=== PATIENT | female | born 1985 | race African-American/Black ===

== ENCOUNTER 2017-03-20 08:11 | Emergency (ER) | payer MEDICAID ==
[2017-03-20 08:45] LABS: BASOPHILS 0.2 % (0-2); EOSINOPHILS 2.3 % (0-7); HEMATOCRIT 39.2 % (36.0-48.0); IMMATURE GRANULOCYTES 0.4 % (0-5); LYMPHOCYTES 32.1 % (15-50); MCH 28.9 pg (26.0-34.0); MCHC 33.2 g/dL (31.0-37.0); MCV 87.1 fL (80.0-100.0); MEAN PLATELET VOLUME 11.8 fL (7.4-10.4); MONOCYTES 8.3 % (2-11); NEUTROPHILS 56.7 % (40-80); PLATELET COUNT 165 10x3/uL (130-400); RDW 13.1 % (11.5-14.5); WBC 4.7 10x3/uL (4.8-10.8)
[2017-03-20 08:54] LABS: APPEARANCE HAZY (CLEAR); BILIRUBIN NEGATIVE (NEGATIVE); COLOR YELLOW (YELLOW); GLUCOSE NEGATIVE (NEGATIVE); KETONE NEGATIVE (NEGATIVE); LEUKOCYTE ESTERASE NEGATIVE (NEGATIVE); NITRITE NEGATIVE (NEGATIVE); PROTEIN NEGATIVE (NEGATIVE); SPECIFIC GRAVITY 1.015 (1.005-1.020); UROBILINOGEN NORMAL (NORMAL)
[2017-03-20 09:00] LABS: ALBUMIN 3.6 g/dL (3.4-5.0); ALKALINE PHOSPHATASE 41 U/L (46-116); ALT (SGPT) 23 U/L (10-68); CALC OSMOLALITY 269 mosm/kg (275-300); CARBON DIOXIDE 24.6 mmol/L (21.0-32.0); CHLORIDE - SERUM 103 mmol/L (98-107); CREATININE - SERUM 0.7 mg/dL (0.6-1.3); GLUCOSE 83 mg/dL (74-106); POTASSIUM - SERUM 3.6 mmol/L (3.5-5.1); PROTEIN - SERUM 7.4 g/dL (6.4-8.2); SODIUM 136 mmol/L (136-145); UREA NITROGEN 9 mg/dL (7-18); eGFR NON AFRICAN AMERICAN > 90 mL/min (90-120)
[2017-03-20 09:22] LABS: HCG - QUANTITATIVE (MATERNAL) 98789 mIU/mL; LIPASE 92 U/L (73-393)
[2017-03-20 09:53] LABS: HELICOBACTER PYLORI IGG NEGATIVE (NEGATIVE)
== END 2017-03-20 09:41 | disposition home or self-care (01) ==
LOC: D.ER 08:11
PROVIDERS: Emergency Medicine
DX: O26.899 Other specified pregnancy related conditions, unspecified trimester (principal); K27.3 Acute peptic ulcer, site unspecified, without hemorrhage or perforation

== ENCOUNTER 2017-06-12 19:50 | Outpatient (CLI) | payer SELFPAY ==
[2017-06-12 20:34] LABS: BASOPHILS 0.1 % (0-2); EOSINOPHILS 2.2 % (0-7); HEMATOCRIT 32.7 % (36.0-48.0); HEMOGLOBIN 11.1 g/dL (12-16); IMMATURE GRANULOCYTES 0.6 % (0-5); LYMPHOCYTES 28.3 % (15-50); MCH 29.8 pg (26.0-34.0); MCHC 33.9 g/dL (31.0-37.0); MCV 87.7 fL (80.0-100.0); MEAN PLATELET VOLUME 11.7 fL (7.4-10.4); MONOCYTES 9.7 % (2-11); NEUTROPHILS 59.1 % (40-80); PLATELET COUNT 145 10x3/uL (130-400); RBC 3.73 10x6/uL (4.00-5.40); RDW 13.5 % (11.5-14.5); WBC 7.8 10x3/uL (4.8-10.8)
[2017-06-12 20:38] LABS: APPEARANCE HAZY (CLEAR); BILIRUBIN NEGATIVE (NEGATIVE); COLOR YELLOW (YELLOW); GLUCOSE NEGATIVE (NEGATIVE); KETONE NEGATIVE (NEGATIVE); LEUKOCYTE ESTERASE NEGATIVE (NEGATIVE); NITRITE NEGATIVE (NEGATIVE); PROTEIN NEGATIVE (NEGATIVE); UROBILINOGEN NORMAL (NORMAL)
[2017-06-12 21:05] LABS: ALBUMIN 3.1 g/dL (3.4-5.0); ALKALINE PHOSPHATASE 37 U/L (46-116); ALT (SGPT) 19 U/L (10-68); CALC OSMOLALITY 279 mosm/kg (275-300); CALCIUM 9.3 mg/dL (8.5-10.1); CARBON DIOXIDE 23.3 mmol/L (21.0-32.0); CHLORIDE - SERUM 106 mmol/L (98-107); CREATININE - SERUM 0.5 mg/dL (0.6-1.3); GLUCOSE 83 mg/dL (74-106); POTASSIUM - SERUM 3.9 mmol/L (3.5-5.1); PROTEIN - SERUM 6.3 g/dL (6.4-8.2); SODIUM 141 mmol/L (136-145); UREA NITROGEN 12 mg/dL (7-18); eGFR NON AFRICAN AMERICAN > 90 mL/min (90-120)
[2017-06-12 21:29] LABS: HCG - QUANTITATIVE (MATERNAL) 11495 mIU/mL; LIPASE 125 U/L (73-393)
== END 2017-06-13 01:34 | disposition home or self-care (01) ==
LOC: D.ER 19:50 → D.LDO 19:50 → EDSTATUS 20:04 → D.LD 23:51 → D.LDO 06-13 01:34
PROVIDERS: Emergency Medicine
DX: O26.892 Other specified pregnancy related conditions, second trimester (principal); Z3A.20 20 weeks gestation of pregnancy

== ENCOUNTER → 2017-06-20 18:45 | Outpatient (CLI) | payer SELFPAY | END | disposition home or self-care (01) | LOC: D.LDO 18:45 | DX: O36.8190 Decreased fetal movements, unspecified trimester, not applicable or unspecified (principal); Z3A.00 Weeks of gestation of pregnancy not specified ==

== ENCOUNTER 2017-08-03 17:11 | Emergency (ER) | payer MEDICAID ==
[2017-10-20 13:06] VITALS: BMI 28.4
== END 2017-08-03 19:50 | disposition home or self-care (01) ==
LOC: D.ER 17:11
DX: J01.90 Acute sinusitis, unspecified (principal)

== ENCOUNTER 2017-08-28 23:33 | Outpatient (CLI) | payer MEDICAID ==
[2017-08-28 23:55] LABS: APPEARANCE CLEAR (CLEAR); BILIRUBIN NEGATIVE (NEGATIVE); COLOR YELLOW (YELLOW); GLUCOSE NEGATIVE (NEGATIVE); KETONE NEGATIVE (NEGATIVE); NITRITE NEGATIVE (NEGATIVE); PROTEIN NEGATIVE (NEGATIVE); UROBILINOGEN NORMAL (NORMAL)
[2017-10-20 13:06] VITALS: BMI 28.4
== END 2017-08-29 00:26 | disposition home or self-care (01) ==
LOC: D.LD 23:33 → D.LDO 23:33
PROVIDERS: Obstetrics & Gynecology
DX: O26.893 Other specified pregnancy related conditions, third trimester (principal); Z3A.31 31 weeks gestation of pregnancy

== ENCOUNTER → 2017-09-19 15:05 | Outpatient (CLI) | payer MEDICAID ==
[~2017-09-19 15:05] MED LIST: IBUPROFEN800 MG PO; PERCOCET 7.5/321 TAB PO; PRENATAL COMPLE1 TAB; PRENATAL COMPLE1 TAB PO
[2017-09-19 15:30] LABS: APPEARANCE HAZY (CLEAR); BILIRUBIN NEGATIVE (NEGATIVE); COLOR YELLOW (YELLOW); GLUCOSE NEGATIVE (NEGATIVE); KETONE NEGATIVE (NEGATIVE); NITRITE NEGATIVE (NEGATIVE); PROTEIN NEGATIVE (NEGATIVE); UROBILINOGEN NORMAL (NORMAL)
[2017-09-19 15:34] LABS: BACTERIA MODERATE /hpf (NONE SEEN); MUCUS >1+ /lpf (NONE SEEN); RED CELLS - URINE 0-5 /hpf (0-5)
[2017-10-20 13:06] VITALS: BMI 28.4
== END | disposition home or self-care (01) ==
LOC: D.LDO 15:05
PROVIDERS: Obstetrics & Gynecology
DX: O26.893 Other specified pregnancy related conditions, third trimester (principal); Z3A.34 34 weeks gestation of pregnancy

== ENCOUNTER 2017-10-20 12:34 | Inpatient (IN) | payer MEDICAID ==
[~2017-10-20] VITALS: Ht 160 cm; Wt 72.6 kg
[2017-10-20] VITALS (7 sets, daily range): BP systolic 110–135; BP diastolic 58–74; Ht 160 cm; Wt 72.6 kg
--- NOTE | ~2017-10-20 | OP ---
PATIENT NAME: GILLIAN VERGARA MEDICAL RECORD: [id number] :89 LOCATION:[id number] ADMISSION DATE:10/20/17 SURGEON: KAMARI HIDALGO MD DATE OF OPERATION: 10/20/2017 PREOPERATIVE DIAGNOSES: 1. Early labor. 2. Prior section times 2. 3. at 38 weeks and 6 days. 4. Unwanted fertility. POSTDELIVERY DIAGNOSES: 1. Early labor. 2. Prior section times 2. 3. at 38 weeks and 6 days. 4. Unwanted fertility. PROCEDURES: 1. Repeat low transverse section. 2. Bilateral tubal ligation using a Catano technique. SURGEON: Kamari Hidalgo MD UNDERCOAT SPRAYER: Teressa Begum. ANESTHESIA: Spinal. FINDING: Unremarkable uterus, tubes, and ovaries. Viable female , vertex presentation, 9 and 9, weight 6 pounds 11 ounces. SPECIMENS REMOVED: Portions of right and left tube. SPECIMEN DISPOSITION: Pathology. ESTIMATED BLOOD LOSS: 700 cc. URINE: 100 cc of clear urine. FLUIDS 2000 cc of Lactated Ringer's. COMPLICATIONS: None. DRAINS: Spencer to gravity. INDICATIONS: The patient is a 32-year-old G3, para 2, who presents with painful regular contractions at 38 weeks and 6 days. The patient has history of a prior section. The patient was consented for repeat . The patient also has unwanted fertility and has been consented for tubal ligation and understands risks and benefits as well as limitations of this procedure. DESCRIPTION OF PROCEDURE: After informed consent was assured, the patient was taken to the operating room, anesthetic was obtained without difficulty. The patient was now prepped and draped in the usual sterile fashion. Anesthetic was assessed and found to be adequate. Incision was made over the old scar, carried down to the underlying layer of the fascia, which was opened in the midline and OPERATIVE REPORT [id number] GILLIAN VERGARA extended laterally. The rectus bellies were dissected free superiorly and inferiorly, then in the midline. Peritoneum was entered and a bladder retractor was inserted. A low transverse hysterotomy was performed and infant was delivered on to the abdomen after rupturing the bag of steiner. Infant suctioned on the abdomen and passed to the attendant. A cord blood sample was obtained. The placenta was delivered via Crede maneuver. Uterus exteriorized, cleared of all clot and debris and closed in a running locked fashion with 1 chromic stitch. [id number] stitch was used to obtain hemostasis at the hysterotomy. Uterus was returned to the abdomen and then the pelvis was irrigated. Initial count was correct times 1. The rectus bellies were inspected and bleeding vessels cauterized. Fascia was now closed with looped PDS. Subcutaneous tissue was inspected. Bleeding vessels cauterized and the skin reapproximated with Monocryl on a Saulo needle. Steri-Strips and sterile dressing was now applied. The sponge, lap and needle was count correct times 2. TRANSINT:[id number] Voice Confirmation ID: [id number] DOCUMENT ID: [id number] KAMARI HIDALGO MD at 1821 CC: [id number] DICTATION DATE: 10/20/17 1705 SYSTEMS CHECKOUT MECHANIC: 10/20/17 2143 ADM IN [facility] [address] [place] [address]
--- NOTE | ~2017-10-20 | DS ---
PATIENT:GILLIAN VERGARA :89 MEDICAL RECORD: [id number] DISCHARGE SUMMARY ADMISSION DATE: 10/20/17 DISCHARGE DATE: 10/22/17 DATE OF ADMISSION: 10/20/2017 DATE OF DISCHARGE: 10/22/2017 ADMISSION DIAGNOSES: 1. Active labor. 2. Prior section times 2. 3. Unwanted fertility. DISCHARGE DIAGNOSES: 1. Active labor. 2. Prior section times 2. 3. Unwanted fertility. PROCEDURES: 1. Repeat low transverse section. 2. tubal ligation using a Bivins technique. ATTENDING: Luz Pleitez MD HISTORY OF PRESENT ILLNESS: See the H&P in the chart. SUMMARY OF HOSPITALIZATION: The patient was admitted to the hospital and underwent procedure without incident. At time of dictation, the patient is afebrile and doing well. Incision is clean, dry and intact and the uterus is firm with appropriate incisional and abdominal tenderness. Standard postoperative precautions and precautions have been reviewed with the patient. I will see her back in 2 weeks at [facility]. DISCHARGE MEDICATIONS: Will include Percocet and Motrin for pain management. TRANSINT:[id number] Voice Confirmation ID: [id number] DOCUMENT ID: [id number] LUZ PLEITEZ MD at 1647 CC: [id number] DICTATION DATE: 10/22/17 023 PILE DRIVING SUPERINTENDENT: 10/23/17 0013 DIS IN 10/22/17 [address] [id number] [place] [address]
[2017-10-20] MEDS ORDERED: PRENATAL COMPLE1 TAB PO (13:05)
[2017-10-20] MEDS ORDERED: PRENATAL COMPLE1 TAB (13:05)
[2017-10-20 13:48] LABS: HEMATOCRIT 38.2 % (36.0-48.0); HEMOGLOBIN 12.5 g/dL (12-16); MCHC 32.7 g/dL (31.0-37.0); MCV 85.5 fL (80.0-100.0); MEAN PLATELET VOLUME 11.8 fL (7.4-10.4); RBC 4.47 10x6/uL (4.00-5.40); RDW 14.1 % (11.5-14.5)
[2017-10-21 04:00] VITALS: BP 126/63
[2017-10-21 05:14] LABS: RAPID PLASMA REAGIN Non Reactive (Non Reactive)
[2017-10-21 07:17] VITALS: BP 122/70
[2017-10-21 17:10] VITALS: BP 110/70
[2017-10-21 19:23] VITALS: BP 124/57
[2017-10-22 00:18] VITALS: BP 124/57
[2017-10-22 08:15] VITALS: BP 121/58
[2017-10-22 08:30] VITALS: BP 129/56
[2017-10-22 09:11] LABS: BASOPHILS 0 % (0-2); EOSINOPHILS 1.8 % (0-7); HEMATOCRIT 29.9 % (36.0-48.0); HEMOGLOBIN 9.6 g/dL (12-16); IMMATURE GRANULOCYTES 0.4 % (0-5); LYMPHOCYTES 11.2 % (15-50); MCH 27.5 pg (26.0-34.0); MCHC 32.1 g/dL (31.0-37.0); MCV 85.7 fL (80.0-100.0); MEAN PLATELET VOLUME 10.8 fL (7.4-10.4); MONOCYTES 10.8 % (2-11); NEUTROPHILS 75.8 % (40-80); PLATELET COUNT 120 10x3/uL (130-400); RBC 3.49 10x6/uL (4.00-5.40); RDW 14.4 % (11.5-14.5); WBC 7.3 10x3/uL (4.8-10.8)
[2017-10-22 09:27] LABS: ALBUMIN 2.3 g/dL (3.4-5.0); ALKALINE PHOSPHATASE 99 U/L (46-116); ALT (SGPT) 15 U/L (10-68); BILIRUBIN - TOTAL 0.18 mg/dL (0.2-1.3); CALC OSMOLALITY 274 mosm/kg (275-300); CALCIUM 8.5 mg/dL (8.5-10.1); CARBON DIOXIDE 28.2 mmol/L (21.0-32.0); CHLORIDE - SERUM 104 mmol/L (98-107); CREATININE - SERUM 0.6 mg/dL (0.6-1.3); GLUCOSE 85 mg/dL (74-106); POTASSIUM - SERUM 3.3 mmol/L (3.5-5.1); PROTEIN - SERUM 5.7 g/dL (6.4-8.2); SODIUM 139 mmol/L (136-145); UREA NITROGEN 7 mg/dL (7-18); eGFR NON AFRICAN AMERICAN > 90 mL/min (90-120)
[2017-10-22] MEDS ORDERED: PERCOCET 7.5/321 TAB PO (13:30)
[2017-10-22] MEDS ORDERED: IBUPROFEN800 MG PO (13:31)
== END 2017-10-22 14:30 | disposition home or self-care (01) | DRG 766 ==
LOC: D.LDO 12:34 → D.LD 12:57
PROVIDERS: Obstetrics & Gynecology
PROC: 10D00Z1 Extraction of Products of Conception, Low, Open Approach (ICD-10-PCS; principal; 2017-10-20 13:00)
PROC: 0UB70ZZ Excision of Bilateral Fallopian Tubes, Open Approach (ICD-10-PCS; 2017-10-20 13:00)
DX: O34.219 Maternal care for unspecified type scar from previous cesarean delivery (principal); Z3A.38 38 weeks gestation of pregnancy; Z37.0 Single live birth; Z30.2 Encounter for sterilization; Z30.09 Encounter for other general counseling and advice on contraception

== ENCOUNTER 2018-10-15 19:28 | Emergency (ER) | payer MEDICAID ==
[~2018-10-15] VITALS: Ht 160 cm; Wt 45.4 kg
[2018-10-15 19:55] VITALS: Ht 160 cm; Wt 45.4 kg
[2018-10-15 22:35] LABS: HCG SERUM NEGATIVE (NEGATIVE)
[2018-10-15] MEDS ORDERED: ZOFRAN ODT4 MG/UDTAB PO (23:18)
[2018-10-15 23:44] VITALS: BP 131/85
== END 2018-10-15 23:44 | disposition home or self-care (01) ==
LOC: D.ER 19:28
PROVIDERS: Family Medicine
DX: R51 Headache (principal); B34.9 Viral infection, unspecified